=== PATIENT | male | born 1965 | race Hispanic/Latino ===

== ENCOUNTER 2017-03-15 05:29 | Emergency (ER) | payer OTHER ==
[2017-03-15 06:08] VITALS: TEMP 98.1
[2017-03-15] MEDS ORDERED: Sodium Chloride 0.9% 1,000 ML IV STA (07:24)
[2017-03-15] MEDS ORDERED: Albuterol-Ipratrop 3 mg / 0.5 (3 ml) UD INH STA (07:24)
[2017-03-15] MEDS ORDERED: DiphenhydrAMINE 50 mg/ml Inj IVP STA (07:26)
--- NOTE | 2017-03-15 07:32 | ED PDOC ---
HPI: Chest Pain Time Seen by Provider: 03/15/17 07:05 Chief Complaint (Nursing): Chest Pain Chief Complaint (Provider): Cough with chest pain History Per: Patient History/Exam Limitations: no limitations Onset/Duration Of Symptoms: Hrs (5 hours ago) Current Symptoms Are (Timing): Still Present Additional Complaint(s): 51 y/o male presents to the ED complaining of sore throat and cough, associated with chest pain, onset of 5 hours ago. Of note, his sister's cat, which he's allergic to, slept on his head last night. 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 - Surgical History Surgical History: No Surg Hx - Family History Family History: States: Unknown Family Hx - Social History Current smoker - smoking cessation education provided: No Ex-Smoker (has not smoked in the last 12 months): No Alcohol: None Drugs: Denies - Home Medications Home Medications: Ambulatory Orders Medication Instructions Recorded Albuterol HFA [Ventolin HFA 90 2 puff IH [id number] PRN #1 bottle 03/15/17 mcg/actuation (8 g)] DiphenhydrAMINE [Benadryl] 50 mg PO Q6H #20 cap 03/15/17 Famotidine [Pepcid] 20 mg PO BID #20 tab 03/15/17 Prednisone 50 mg PO DAILY #4 tab 03/15/17 - Allergies Allergies/Adverse Reactions: Allergies Allergy/AdvReac Type Severity Reaction Status Date / Time No Known Allergies Allergy Verified 03/15/17 06:09 Review of Systems ROS Statement: Except As Marked, All Systems Reviewed And Found Negative Constitutional: Negative for: Fever ENT: Positive for: Throat Pain Cardiovascular: Positive for: Chest Pain (when coughing). Negative for: Palpitations Respiratory: Positive for: Cough. Negative for: Shortness of Breath Physical Exam - Reviewed Nursing Documentation Reviewed: Yes Vital Signs Reviewed: Yes - Physical Exam Appears: Positive for: Non-toxic, No Acute Distress Head Exam: Positive for: ATRAUMATIC, NORMOCEPHALIC Skin: Positive for: Normal Color, Warm Eye Exam: Positive for: Normal appearance, EOMI, PERRL ENT: Positive for: Normal ENT Inspection, Pharynx Is (clear, no drooling) Neck: Positive for: Normal, Painless ROM, Supple Cardiovascular/Chest: Positive for: Regular Rate, Rhythm, Tachycardia Respiratory: Positive for: Normal Breath Sounds. Negative for: Respiratory Distress Back: Positive for: Normal Inspection Extremity: Positive for: Normal ROM. Negative for: Pedal Edema, Deformity Neurologic/Psych: Positive for: Alert, Oriented. Negative for: Motor/Sensory Deficits - Laboratory Results Result Diagrams: 03/15/17 07:45 03/15/17 07:45 - ECG O2 Sat by Pulse Oximetry: 91 (RA) Pulse Ox Interpretation: Normal - Radiology X-Ray: Interpreted by [facility] X-Ray Interpretation: No Acute Disease Medical Decision Making Medical Decision Making: Time: --07:23 Impression: --Allergic Reaction Plan: --EKG --Labs --Troponin I --Chest X-ray --Albuterol 3ml INH --Benadryl 25mg IP --Pepcid 20mg IVP --methylprednisolone 125 mg IVP --IV Fluids --Peak Flow pre/post tx - Reassess --07:39 Patient refused to have an EKG done. 09:50 Pt states he needs to go to a wake, wants to leave. Scribe Attestation: Documented by Juan C Thao acting as a scribe for Soraya Fermin MD. Disposition - Clinical Impression Clinical Impression: Allergic reaction - Disposition Disposition: Routine/Home Disposition Time: 09:52 Condition: IMPROVED Additional Instructions: FOLLOW-UP WITH PMD WITHIN 2 DAYS FOR REEVALUATION. Prescriptions: Albuterol HFA [Ventolin HFA 90 mcg/actuation (8 g)] 2 puff IH [id number] PRN #1 bottle PRN Reason: Shortness Of Breath DiphenhydrAMINE [Benadryl] 50 mg PO Q6H #20 cap Famotidine [Pepcid] 20 mg PO BID #20 tab Prednisone 50 mg PO DAILY #4 tab Instructions: General Allergic Reaction (ED) Forms: [employer] ([place]ayan)
[2017-03-15 08:02] LABS: BASO % 0.5 % (0.0-2.0); EOS # 0.1 K/uL (0.0-0.7); EOS % 0.8 % (0.0-4.0); HEMOGLOBIN 15.4 g/dL (12.0-18.0); LYMPH # 0.8 K/uL (1.0-4.3); LYMPH % 9.4 % (20.0-40.0); MEAN CELL VOLUME 96.4 fl (80.0-94.0); MEAN CORPUSCULAR HEMOGLOBIN 33.4 pg (27.0-31.0); MEAN CORPUSCULAR HGB CONC 34.7 g/dL (33.0-37.0); MEAN PLATELET VOLUME 6.8 fl (7.2-11.7); MONO # 0.5 K/uL (0.0-0.8); MONO % 6.5 % (0.0-10.0); NEUT # 6.6 K/uL (1.8-7.0); NEUT % 82.8 % (50.0-75.0); NRBC % 0.2 % (0.0-0.0); PLATELET COUNT 143 K/uL (130-400); RBC 4.61 Mil/uL (4.40-5.90); RED CELL DISTRIBUTION WIDTH 13.1 % (11.5-14.5)
[2017-03-15 08:20] LABS: ALB/GLOB RATIO 1.3 (1.0-2.1); ALBUMIN 4.2 g/dL (3.5-5.0); ALT/SGPT 129 U/L (21-72); AST/SGOT 72 U/L (17-59); BLOOD UREA NITROGEN 14 mg/dl (9-20); CALCIUM 9.5 mg/dL (8.4-10.2); GFR AFRICAN-AMERICAN > 60; GFR NON-AFRICAN AMERICAN > 60
[2017-03-15 09:50] VITALS: BP 108/71; PULSE 97; RESP 16
--- NOTE | 2017-03-15 10:28 | RAD ---
HISTORY: Cough COMPARISON: Chest radiograph 07/15/2010 TECHNIQUE: Chest PA and lateral FINDINGS: LUNGS: Early infiltrate is difficult exclude at the medial right base. No left-sided infiltrate. PLEURA: No significant pleural effusion identified. No pneumothorax apparent. CARDIOVASCULAR: Normal. OSSEOUS STRUCTURES: No significant abnormalities. VISUALIZED UPPER ABDOMEN: Normal. OTHER FINDINGS: None. IMPRESSION: Borderline infiltrate medial right base. Remaining lung sen clear. No cardiomegaly or pulmonary vascular derangement appreciated.
[2017-03-15 12:32] LABS: BANDS 1 % (0-2); LYMPHOCYTE 7 % (20-50); MONOCYTE 1 % (0-10); NEUTROPHIL 87 % (42-75); PLATELET ESTIMATE NORMAL (NORMAL); REACTIVE LYMPHOCYTES 4 % (0-0); TOTAL CELLS COUNTED 100
[2017-03-16 16:21] VITALS: O2SAT 91
== END 2017-03-15 09:57 | disposition home or self-care (01) ==
LOC: H.ER 05:29
DX: T78.40XA Allergy, unspecified, initial encounter (principal)
CPT/HCPCS: 71046; 80053; 84484; 85025; 96374; 96375; 99284; J1200; J2930; J7040